=== PATIENT | male | born 1990 | race Caucasian/White ===

== ENCOUNTER 2018-01-21 12:48 | Emergency (ER) | payer MEDICAID, OTHER ==
[~2018-01-21] VITALS: Ht 185.4 cm; Wt 103.0 kg
[2018-01-21 14:34] VITALS: BP 126/88
== END 2018-01-21 14:46 | disposition left against medical advice (07) ==
LOC: ER 12:48
DX: R10.13 Epigastric pain (principal); R11.0 Nausea; M54.9 Dorsalgia, unspecified
CPT/HCPCS: 99281; 99283

== ENCOUNTER 2018-12-09 05:11 | Emergency (ER) | payer MEDICAID ==
[~2018-12-09] VITALS: Ht 175.3 cm; Wt 84.0 kg
[2018-12-09] MEDS ORDERED: ONDANSETRON HCL 4MG/2ML INJ IV STA (06:14)
[2018-12-09] MEDS ORDERED: SODIUM CHLORIDE 0.9% 1,000 ML IV ONE (06:14)
[2018-12-09] MEDS ORDERED: LORAZEPAM 2MG/ML CPJ IV ONE (06:15)
[2018-12-09 06:31] LABS: CHLORIDE 110 mEq/L (98-107)
[2018-12-09 06:34] LABS: BASOPHILS % 0.5 % (0.0-2.0); EOSINOPHILS % 0.2 % (0.0-5.0); HEMATOCRIT. 50.5 % (42.0-52.0); HEMOGLOBIN. 17.4 g/dL (14.0-18.0); LYMPHOCYTES % 15.7 % (20.0-50.0); MEAN CORPUSCULAR HEMOGLOBIN 30.8 pg (28.0-32.0); MEAN CORPUSCULAR VOLUME 89.5 fL (80.0-94.0); MEAN PLATELET VOLUME 9.8 fl (7.4-10.4); MONOCYTES % 4.3 % (2.0-8.0); NEUTROPHILS % 79.3 % (40.0-76.0); PLATELET 300 x1000/uL (130-400); RED BLOOD CELL COUNT 5.65 mill/uL (4.7-6.1); RED CELL DISTRIBUTION WIDTH 14.1 % (11.6-14.6)
[2018-12-09 06:35] LABS: ETHANOL BLOOD 23 mg/dL
[2018-12-09] MEDS ORDERED: POTASSIUM CHLORIDE 20MEQ TABLET SR PO ONE (07:15)
[2018-12-09 07:18] LABS: CLARITY URINE CLEAR (CLEAR); COLOR URINE YELLOW (YELLOW); KETONES URINE 2+ (NEGATIVE); LEUKOCYTE ESTERASE URINE NEGATIVE (NEGATIVE); NITRITE URINE NEGATIVE (NEGATIVE); OCCULT BLOOD URINE NEGATIVE (NEGATIVE); PH URINE 5.5 (4.5-8.0); PROTEIN URINE 1+ (NEGATIVE); SPECIFIC GRAVITY URINE 1.043 (1.005-1.030); UROBILINOGEN URINE 0.2 E.U./dL (0.2-1.0)
[2018-12-09 08:09] LABS: *AMPHETAMINES SCREEN URINE PRESUMTIVE POSITIVE (NEGATIVE); *BARBITURATES SCREEN URINE NEGATIVE (NEGATIVE); *BENZODIAZEPINES SCREEN URINE NEGATIVE (NEGATIVE); *COCAINE SCREEN URINE PRESUMTIVE POSITIVE (NEGATIVE)
[2018-12-09 08:10] LABS: CANNABINOID URINE SCREEN NEGATIVE (NEGATIVE); METHADONE URINE SCREEN NEGATIVE (NEGATIVE); OPIATES URINE SCREEN NEGATIVE (NEGATIVE); PHENCYCLIDINE URINE SCREEN NEGATIVE (NEGATIVE)
[2018-12-09 08:53] VITALS: BP 136/77
== END 2018-12-09 08:53 | disposition home or self-care (01) ==
LOC: ER 05:11
DX: T43.621A Poisoning by amphetamines, accidental (unintentional), initial encounter (principal); T40.5X1A Poisoning by cocaine, accidental (unintentional), initial encounter; R11.10 Vomiting, unspecified; E87.6 Hypokalemia; F17.210 Nicotine dependence, cigarettes, uncomplicated; Y92.018 Other place in single-family (private) house as the place of occurrence of the external cause
CPT/HCPCS: 36415; 71045; 80053; 80305; 80320; 81003; 85025; 93005; 96361; 96374; 96375; 99284; J2060; J2405; J7030; G0480

== ENCOUNTER 2022-04-21 04:18 | Emergency (ER) | payer MEDICAID, OTHER ==
[~2022-04-21] VITALS: Ht 190.5 cm; Wt 88.0 kg
[2022-04-21] MEDS ORDERED: IBUPROFEN 800MG TABLET PO ONE (05:45)
[2022-04-21 06:39] VITALS: BP 114/78
== END 2022-04-21 06:40 ==
LOC: ER 04:32
DX: S89.92XA Unspecified injury of left lower leg, initial encounter (principal); F14.10 Cocaine abuse, uncomplicated; V09.9XXA Pedestrian injured in unspecified transport accident, initial encounter; Y93.89 Activity, other specified; Y92.89 Other specified places as the place of occurrence of the external cause; Y99.8 Other external cause status
CPT/HCPCS: 73562; 99283

== ENCOUNTER 2022-08-19 13:02 | Emergency (ER) | payer MEDICAID, OTHER ==
[~2022-08-19] VITALS: Ht 190.5 cm; Wt 85.0 kg
[2022-08-19 13:05] VITALS: BP 98/73
== END 2022-08-19 16:05 | disposition left against medical advice (07) ==
LOC: ER 13:02
DX: Z53.21 Procedure and treatment not carried out due to patient leaving prior to being seen by health care provider (principal)